=== PATIENT | male | born 1950 | race Two or more races ===

== ENCOUNTER 2021-04-08 10:00 | Outpatient (CLI) | payer MEDICARE, OTHER ==
[2021-04-08] MEDS ORDERED: APIX5TAB PO (12:24)
[2021-04-08] MEDS ORDERED: LISI10TA29 PO (12:24)
[2021-04-08] MEDS ORDERED: METO25TA20 PO (12:24)
[2021-04-08] MEDS ORDERED: OMEG1CAP74 PO (12:24)
[2021-04-08] MEDS ORDERED: CHOL200010 PO (12:24)
[2021-04-08] MEDS ORDERED: ASPI-1420 PO (12:24)
[2021-04-08] MEDS ORDERED: ATOR20TA PO (12:24)
[2021-04-08] MEDS ORDERED: METF-442 PO (12:24)
[2021-04-08] MEDS ORDERED: GLIM1TAB18 PO (12:24)
[2021-04-08] MEDS ORDERED: SITA100T PO (12:24)
[2021-04-10] MEDS ORDERED: BUME1TAB8 PO (14:38)
== END 2021-04-08 23:59 | disposition home or self-care (01) ==
LOC: WOU 10:00
PROVIDERS: ATTEND Podiatrist Foot & Ankle Surgery
DX: I70.235 Atherosclerosis of native arteries of right leg with ulceration of other part of foot (principal); I70.232 Atherosclerosis of native arteries of right leg with ulceration of calf; E11.621 Type 2 diabetes mellitus with foot ulcer; L97.812 Non-pressure chronic ulcer of other part of right lower leg with fat layer exposed; L97.518 Non-pressure chronic ulcer of other part of right foot with other specified severity; E11.51 Type 2 diabetes mellitus with diabetic peripheral angiopathy without gangrene; R00.0 Tachycardia, unspecified; R06.02 Shortness of breath; I11.0 Hypertensive heart disease with heart failure; I50.9 Heart failure, unspecified; Z87.891 Personal history of nicotine dependence
CPT/HCPCS: G0463

== ENCOUNTER 2021-04-08 11:05 | Inpatient (IN) | payer MEDICARE, MEDICAID ==
[~2021-04-08] VITALS: Ht 162.6 cm; Wt 82.6 kg
--- NOTE | 2021-04-08 11:13 | NUR ---
TO ER BED 7, BIB [facility] FOR SOB X 2 DAYS. AAOX3, BREATHING EVEN AND NON LABORED, CHANGED INTO A GOWN, CONNECTED TO MONITOR, SON IN LAW AT BEDSIDE
--- NOTE | 2021-04-08 11:49 | NUR ---
SALINE LOCK ESTABLISHED, BLOOD DRAWN AND PICKED UP BY LAB
[2021-04-08 12:01] LABS: BASOPHILS % (AUTO) 0.4 % (0.0-2.0); EOSINOPHILS % (AUTO) 0.6 % (0.0-6.0); HEMATOCRIT 38 % (39-51); HEMOGLOBIN 12.9 g/dL (13.5-17.5); LYMPHOCYTES # (AUTO) 0.9 K/uL (0.8-4.8); LYMPHOCYTES % (AUTO) 10.1 % (20.0-44.0); MEAN CORPUSCULAR HGB CONC 34 g/dl (31.0-36.0); MEAN CORPUSCULAR VOLUME 94 fL (80-96); MONOCYTES # (AUTO) 0.8 K/uL (0.1-1.30); MONOCYTES % (AUTO) 8.2 % (2.0-12.0); NEUTROPHILS # (AUTO) 7.4 K/uL (1.8-8.9); NEUTROPHILS % (AUTO) 80.7 % (43.0-81.0); PLATELET COUNT (AUTO) 274 K/uL (150-450); RED BLOOD CELL COUNT(AUTO) 4.01 MIL/uL (4.5-6.0); WHITE BLOOD COUNT (AUTO) 9.1 K/uL (4.3-11.0)
--- NOTE | 2021-04-08 12:09 | NUR ---
DR VIVEROS AT BEDSIDE
[2021-04-08 12:14] LABS: CALCIUM, SERUM 9.1 mg/dL (8.5-10.1); CREATININE 1.2 mg/dL (0.6-1.3); POTASSIUM 4.5 mmol/L (3.5-5.1)
[2021-04-08] MEDS ORDERED: SITA100T PO (12:24)
[2021-04-08] MEDS ORDERED: OMEG1CAP74 PO (12:24)
[2021-04-08] MEDS ORDERED: GLIM1TAB18 PO (12:24)
[2021-04-08] MEDS ORDERED: CHOL200010 PO (12:24)
[2021-04-08] MEDS ORDERED: ASPI-1420 PO (12:24)
[2021-04-08] MEDS ORDERED: APIX5TAB PO (12:24)
[2021-04-08] MEDS ORDERED: METF-442 PO (12:24)
[2021-04-08] MEDS ORDERED: ATOR20TA PO (12:24)
[2021-04-08] MEDS ORDERED: LISI10TA29 PO (12:24)
[2021-04-08] MEDS ORDERED: METO25TA20 PO (12:24)
[2021-04-08 12:27] LABS: ALBUMIN 3.5 g/dL (3.4-5.0); BILIRUBIN,DIRECT 0.3 mg/dL (0.0-0.2); BILIRUBIN,TOTAL 1.1 mg/dL (0.2-1.0); TOTAL PROTEIN, SERUM 7.2 g/dL (6.4-8.2)
--- NOTE | 2021-04-08 12:46 | NUR ---
COVID SWAB DONE AND SENT TO THE LAB
[2021-04-08] MEDS ORDERED: PIPERACILLIN /TAZOBACTAM 3.375 G in IV D5W 50 ML IV ONE (13:00)
[2021-04-08] MEDS ORDERED: FUROSEMIDE 20 MG/2 ML VIAL IV ONE (13:00)
[2021-04-08] MEDS ORDERED: ASPIRIN 81 MG TAB.CHEW PO ONE (13:00)
[2021-04-08] MEDS ORDERED: FUROSEMIDE 20 MG/2 ML VIAL ONE (13:09)
[2021-04-08] MEDS ORDERED: ASPIRIN 81 MG TAB.CHEW ONE (13:10)
--- NOTE | 2021-04-08 13:21 | NUR ---
sent authorization for use or discolsure of health information form to [facility]. also verified that medical records has received it.
--- NOTE | 2021-04-08 13:25 | NUR ---
BLOOD CULTURE ORDER PER DR VIVEROS. NOTED AND CARRIED OUT.
--- NOTE | 2021-04-08 13:56 | NUR ---
JAKE SON IN LAW [phone]
--- NOTE | 2021-04-08 14:27 | NUR ---
ROOM 324-1
--- NOTE | 2021-04-08 14:34 | NUR ---
NURSE WILL GET REPORT AT [id number] AFTER LUNCH BREAK
--- NOTE | 2021-04-08 14:50 | NUR ---
REPORT GIVEN TO NURSE CAIN
[2021-04-08] MEDS ORDERED: POTASSIUM CHLORIDE 20 MEQ TAB.PRT.SR PO SCH (17:00)
[2021-04-08] MEDS: FUROSEMIDE 40 MG/4 ML VIAL IV SCH ×2 (18:03→21:22)
[2021-04-08] MEDS ORDERED: POTASSIUM CHLORIDE 20 MEQ TAB.PRT.SR PO ONE ×2 (18:03→23:37)
[2021-04-08] MEDS: METFORMIN 500 MG TABLET PO SCH (18:04)
[2021-04-08] MEDS: METOPROLOL TARTRATE 25 MG TABLET PO SCH (18:04)
[2021-04-08] MEDS: APIXABAN 5 MG TABLET PO SCH (18:05)
--- NOTE | 2021-04-08 19:40 | NUR ---
LYE BATH OPERATOR OPENING NOTES: RECEIVED PATIENT IN BED, AWAKE, A/O X4. NO S/S OF DISTRESS NOTED. NO COMPLAIN OF PAIN. CALL LIGHT WITHIN REACH. BED ALARM ON. BED IN LOWEST AND LOCKED POSITION. HOB ELEVATED. WITH O2 AT 4L/MIN NASAL CANNULA.FAMILY MEMBERS AT THE BEDSIDE.
[2021-04-08 20:07] VITALS: BP 97/61
[2021-04-08] MEDS ORDERED: ONDANSETRON HCL/PF 4 MG/2 ML VIAL IVP PRN (21:00)
[2021-04-08] MEDS ORDERED: Z GUARD REMEDY 2 OZ OINT TP PRN (21:00)
[2021-04-08] MEDS ORDERED: ACETAMINOPHEN 325 MG TABLET PO PRN (21:00)
[2021-04-08] MEDS: ATORVASTATIN 10 MG TABLET PO SCH (21:23)
--- NOTE | 2021-04-08 23:44 | NUR ---
INFORMED DR LUNA RE: PATIENT COMPLAINING OF SOB, O2 SAT 100% ON 4L/MIN NASAL CANNULA.
[2021-04-08 23:45] VITALS: BP 109/76
--- NOTE | 2021-04-08 23:45 | NUR ---
ASSESSED PATIENT'S LUNG, CLEAR ON AUSCULTATION.
[2021-04-09] MEDS: FUROSEMIDE 40 MG/4 ML VIAL IV SCH (01:09)
[2021-04-09 04:02] VITALS: BP 117/71
[2021-04-09 07:02] LABS: ALANINE AMINOTRANSFERASE 28 U/L (12-78); ALBUMIN 3.4 g/dL (3.4-5.0); ALKALINE PHOSPHATASE 89 U/L (46-116); ASPARTATE AMINOTRANSFERASE 20 U/L (15-37); BILIRUBIN,TOTAL 1.2 mg/dL (0.2-1.0); CARBON DIOXIDE 27 mmol/L (21-32); CHLORIDE 103 mmol/L (98-107); CREATININE 1.6 mg/dL (0.6-1.3); GLUCOSE 138 mg/dL (74-106); MAGNESIUM 1.8 mg/dL (1.8-2.4); PHOSPHORUS 4.2 mg/dL (2.5-4.9); POTASSIUM 4.7 mmol/L (3.5-5.1); SODIUM SERUM 139 mmol/L (136-145); TOTAL PROTEIN, SERUM 7.1 g/dL (6.4-8.2); UREA NITROGEN, BLOOD 27 mg/dL (7-18)
[2021-04-09 07:04] LABS: BASOPHILS % (AUTO) 0.4 % (0.0-2.0); EOSINOPHILS % (AUTO) 0.8 % (0.0-6.0); HEMATOCRIT 37 % (39-51); HEMOGLOBIN 12.2 g/dL (13.5-17.5); LYMPHOCYTES # (AUTO) 1.2 K/uL (0.8-4.8); LYMPHOCYTES % (AUTO) 15.1 % (20.0-44.0); MEAN CORPUSCULAR HGB CONC 34 g/dl (31.0-36.0); MEAN CORPUSCULAR VOLUME 95 fL (80-96); MONOCYTES # (AUTO) 0.8 K/uL (0.1-1.30); MONOCYTES % (AUTO) 10.5 % (2.0-12.0); NEUTROPHILS # (AUTO) 5.7 K/uL (1.8-8.9); NEUTROPHILS % (AUTO) 73.2 % (43.0-81.0); PLATELET COUNT (AUTO) 262 K/uL (150-450); RED BLOOD CELL COUNT(AUTO) 3.85 MIL/uL (4.5-6.0); WHITE BLOOD COUNT (AUTO) 7.8 K/uL (4.3-11.0)
[2021-04-09 07:11] LABS: CHOLESTEROL 93 mg/dL (<200); HDL CHOLESTEROL 39 mg/dL (40-60); IRON, SERUM 29 ug/dl (50-175); LDL 38 mg/dL (0-99); THYROID STIMULATING HORMONE 2.026 uIU/mL (0.358-3.74); TOTAL IRON BINDING CAPACITY 201 ug/dl (250-450); TRIGLYCERIDES 132 mg/dL (30-150)
--- NOTE | 2021-04-09 07:41 | NUR ---
WOUND CARE CONSULT: PT PRESENTS WITH SACRAL SCARRING, LEFT ABOVE KNEE AMPUTATION SCAR/STUMP AND DRY WOUNDS TO RT LOWER LEG AND FOOT, PRESENT ON ADMISSION. DR MARTINS NOTIFIED OF DPM CONSULT REQUEST. RECOMMENDATIONS MADE FOR SKIN PROTECTION. DISCUSSED WITH NURSING STAFF. MD IN AGREEMENT WITH PLAN OF CARE.
--- NOTE | 2021-04-09 07:41 | NUR ---
RN OPENING NOTE- PATIENT IN BED, AWAKE, A/O X4. NO S/S OF DISTRESS NOTED. NO COMPLAINT OF PAIN. CALL LIGHT WITHIN REACH. BED ALARM ON. BED IN LOWEST AND LOCKED POSITION. HOB ELEVATED. WITH O2 AT 4L/MIN NASAL CANNULA. PT NEEDS ATTENDED. WILL MONITOR AND ASSIST
[2021-04-09] MEDS: GLIMEPIRIDE 1 MG TABLET PO SCH (08:21)
[2021-04-09] MEDS: METFORMIN 500 MG TABLET PO SCH (08:21)
[2021-04-09] MEDS: ASPIRIN EC 81 MG TABLET.DR PO SCH (08:21)
[2021-04-09] MEDS: CHOLECALCIFEROL 1,000 UNIT TABLET (VIT D3) PO SCH (08:21)
[2021-04-09] MEDS: APIXABAN 5 MG TABLET PO SCH ×2 (08:22→17:38)
[2021-04-09] MEDS: LINAGLIPTIN 5 MG TABLET PO SCH (08:22)
[2021-04-09] MEDS: LISINOPRIL (10MG) 10 MG TABLET PO SCH (08:25)
[2021-04-09] MEDS: METOPROLOL TARTRATE 25 MG TABLET PO SCH ×2 (08:25→17:39)
[2021-04-09 08:50] VITALS: BP 122/72
[2021-04-09] MEDS: FUROSEMIDE 100 MG/10 ML VIAL IV SCH ×3 (09:46→17:39)
[2021-04-09 16:07] VITALS: BP 128/67
--- NOTE | 2021-04-09 17:30 | NUR ---
RN NOTE-PT OPPOSITIONAL TO CARE, INSISTING ON LEAVING, REMOVED HIS TELE MONITOR. FAMILY CALLED AND CAME IN TO SPEAK W HIM.
--- NOTE | 2021-04-09 19:01 | NUR ---
RN CLOSING NOTE- PT STAYING TONIGHT, FAMILY AT BEDSIDE, PT TOOK RX, EATING BETTER MOOD. SIDE RAILS UP, BED LOCKED, NEEDS ATTENDED, CALL LIGHT IN REACH. ASSIST / MONITOR
--- NOTE | 2021-04-09 19:50 | NUR ---
RN OPENING NOTES RECEIVED PT IN BED, AWAKE WITH FAMILY AT BEDSIDE. AOx4, POLISH SPEAKING. ON RA AND TOLERATING WELL. NO SOB NOTED. NO S/SX OF RESPIRATORY DISTRESS NOTED. IV ACCESS IN L AC @20. IV IS INTACT, PATENT, AND FLUSHING WELL. NO PAIN OR NAUSEA AT THIS TIME. SAFETY PRECAUTIONS IN PLACE: BED IN LOWEST, LOCKED POSITION, SIDERAILS UPx2, AND BRAKES ON. TABLE AND CALL LIGHT WITHIN REACH. WILL CONTINUE TO MONITOR. Addendum: 04/09/21 at 1956 by JIM KEN RN PATIENT AND FAMILY MEMBERS HAD QUESTIONS ABOUT PATIENT'S PLAN OF CARE. EDUCATED PATIENT AND FAMILY MEMBERS ON LASIX AND ANY OTHER QUESTIONS OF CARE.
[2021-04-09 20:00] VITALS: BP 120/84
--- NOTE | 2021-04-09 20:44 | NUR ---
EDUCATED PATIENT AND FAMILY MEMBERS ON NEED FOR TELE BOX. PATIENT ACCEPTED TO BE PLACED ON TELE BOX AGAIN. RHYTHM IS NORMAL SINUS RHYTHM WITH RATE OF 88.
[2021-04-09] MEDS: ATORVASTATIN 10 MG TABLET PO SCH (21:06)
[2021-04-10] VITALS: BP 133/62
[2021-04-10 04:00] VITALS: BP 129/57
[2021-04-10 06:33] LABS: BASOPHILS % (AUTO) 0.6 % (0.0-2.0); EOSINOPHILS % (AUTO) 1.7 % (0.0-6.0); HEMATOCRIT 36 % (39-51); HEMOGLOBIN 12.5 g/dL (13.5-17.5); LYMPHOCYTES # (AUTO) 1.3 K/uL (0.8-4.8); LYMPHOCYTES % (AUTO) 18.5 % (20.0-44.0); MEAN CORPUSCULAR HGB CONC 34 g/dl (31.0-36.0); MEAN CORPUSCULAR VOLUME 94 fL (80-96); MONOCYTES # (AUTO) 0.8 K/uL (0.1-1.30); NEUTROPHILS # (AUTO) 4.8 K/uL (1.8-8.9); NEUTROPHILS % (AUTO) 68.2 % (43.0-81.0); PLATELET COUNT (AUTO) 237 K/uL (150-450); RED BLOOD CELL COUNT(AUTO) 3.86 MIL/uL (4.5-6.0)
--- NOTE | 2021-04-10 06:51 | NUR ---
RN CLOSING NOTES PT IN WHEELCHAIR AT BEDSIDE, AWAKE. AOx4, SCOTTISH SPEAKING. ON RA AND TOLERATING WELL. NO SOB NOTED. NO S/SX OF RESPIRATORY DISTRESS NOTED. TELE MONITOR DETECTS SINUS RHYTHM WITH RATE OF 80-90. IV ACCESS IN L AC #20. IV IS INTACT, PATENT, AND FLUSHING WELL. NO PAIN OR NAUSEA THROUGHOUT SHIFT. ALL NEEDS MET. PT KEPT CLEAN AND DRY. EDUCATION PROVIDED. SAFETY PRECAUTIONS IN PLACE: BED IN LOWEST, LOCKED POSITION, SIDERAILS UPx2, AND BRAKES ON. TABLE AND CALL LIGHT WITHIN REACH. WILL ENDORSE TO ONCOMING SHIFT FOR ROYAL.
[2021-04-10 07:14] LABS: CARBON DIOXIDE 26 mmol/L (21-32); CHLORIDE 102 mmol/L (98-107); CREATININE 1.5 mg/dL (0.6-1.3); GLUCOSE 90 mg/dL (74-106); MAGNESIUM 1.7 mg/dL (1.8-2.4); PHOSPHORUS 5.1 mg/dL (2.5-4.9); POTASSIUM 4.1 mmol/L (3.5-5.1); SODIUM SERUM 141 mmol/L (136-145); UREA NITROGEN, BLOOD 27 mg/dL (7-18)
--- NOTE | 2021-04-10 07:40 | NUR ---
OFFSET PLATE MAKER OPENING NOTES RECEIVED PATIENT IN BED, AWAKE, A/O X4, IN WHEELCHAIR. PATIENT ON ROOM AIR; BREATHING EVEN AND UNLABORED, NO SOB NOTED. TELE [id number] WITH A CURRENT READING OF SR 81 BPM. NO COMPLAINS OF PAIN AT THIS TIME. LAC IV ACCESS G #20 PRESENT AND INTACT;SL. SAFETY PRECAUTIONS IN PLACE; BED IN LOW POSITION AND LOCKED, RAILS UP X2, CALL LIGHT WITHIN REACH. WILL CONTINUE TO MONITOR PATIENT.
[2021-04-10 08:00] VITALS: BP 121/73
[2021-04-10] MEDS ORDERED: MAGNESIUM OXIDE 400 MG TABLET PO ONE (09:00)
[2021-04-10] MEDS: METOPROLOL TARTRATE 25 MG TABLET PO SCH (09:00)
[2021-04-10] MEDS: GLIMEPIRIDE 1 MG TABLET PO SCH (09:09)
[2021-04-10] MEDS: CHOLECALCIFEROL 1,000 UNIT TABLET (VIT D3) PO SCH (09:09)
[2021-04-10] MEDS: ASPIRIN EC 81 MG TABLET.DR PO SCH (09:09)
[2021-04-10] MEDS: LINAGLIPTIN 5 MG TABLET PO SCH (09:09)
[2021-04-10 09:10] VITALS: BP 121/73
[2021-04-10] MEDS: LISINOPRIL (10MG) 10 MG TABLET PO SCH (09:10)
[2021-04-10] MEDS: APIXABAN 5 MG TABLET PO SCH (09:11)
[2021-04-10] MEDS ORDERED: FUROSEMIDE 20 MG/2 ML VIAL IV SCH (12:30)
--- NOTE | 2021-04-10 14:30 | NUR ---
MS REHAB DIRECTOR NOTES PATIENT DISCHARGED HOME IN MEDICALLY STABLE CONDITION. PATIENT A/O X4, ABLE TO MAKE NEEDS KNOWN. PATIENT SEEN BY PRIMARY MD AND DISCHARGE INSTRUCTIONS AND F/U APPOINTMENTS PROVIDED; PATIENT AND FAMILY VERBALIZED UNDERSTANDING. DISCHARGE PAPERWORK DONE AND SIGNED BY PATIENT. BELONGINGS ACCOUNTED FOR AND SIGNED WELL. PICTURES TAKEN. IV ACCESS REMOVED PRIOR TOO PATIENT LEAVING THE FLOOR. PATIENT LEFT THE UNIT VIA WHEELCHAIR ACCOMPANIED BY RN AND SON.
[2021-04-10] MEDS ORDERED: BUME1TAB8 PO (14:38)
== END 2021-04-10 14:50 | disposition home or self-care (01) | DRG 280 ==
LOC: ER 11:12 → TELE 14:34 → MED 04-10 11:12
PROVIDERS: ADMIT Nurse Practitioner Acute Care; ATTEND Nurse Practitioner Acute Care
DX: I11.0 Hypertensive heart disease with heart failure (principal); N17.0 Acute kidney failure with tubular necrosis; I21.A1 Myocardial infarction type 2; I50.41 Acute combined systolic (congestive) and diastolic (congestive) heart failure; D68.59 Other primary thrombophilia; I87.311 Chronic venous hypertension (idiopathic) with ulcer of right lower extremity; L97.419 Non-pressure chronic ulcer of right heel and midfoot with unspecified severity; L97.819 Non-pressure chronic ulcer of other part of right lower leg with unspecified severity; E11.40 Type 2 diabetes mellitus with diabetic neuropathy, unspecified; E11.51 Type 2 diabetes mellitus with diabetic peripheral angiopathy without gangrene; I25.10 Atherosclerotic heart disease of native coronary artery without angina pectoris; Z20.822 Contact with and (suspected) exposure to COVID-19; E78.00 Pure hypercholesterolemia, unspecified; E78.5 Hyperlipidemia, unspecified; Z79.84 Long term (current) use of oral hypoglycemic drugs; Z79.82 Long term (current) use of aspirin; Z79.01 Long term (current) use of anticoagulants; Z79.899 Other long term (current) drug therapy; E80.6 Other disorders of bilirubin metabolism; Z89.511 Acquired absence of right leg below knee; Z87.891 Personal history of nicotine dependence
CPT/HCPCS: 36415; 71045-TC; 80048-TC; 80053-TC; 80061-TC; 80076-TC; 83540-TC; 83605-TC; 83735-TC; 83880; 84100-TC; 84443-TC; 84484-TC; 85025-TC; 87040-TC; 87081-TC; 93307-TC; 93926-TC; A6403; C9803; G0378; J1940; J2543; J7060

== ENCOUNTER 2021-05-17 08:54 | Outpatient (CLI) | payer MEDICARE, OTHER ==
[~2021-05-17 08:54] MED LIST: APIX5TAB PO; ASPI-1420 PO; ATOR20TA PO; BUME1TAB8 PO; CHOL200010 PO; GLIM1TAB18 PO; LISI10TA29 PO; METF-442 PO; METO25TA20 PO; OMEG1CAP74 PO; SITA100T PO
[2021-05-17 10:32] LABS: BASOPHILS % (AUTO) 0.4 % (0.0-2.0); EOSINOPHILS % (AUTO) 0.4 % (0.0-6.0); HEMATOCRIT 31 % (39-51); HEMOGLOBIN 10.7 g/dL (13.5-17.5); LYMPHOCYTES # (AUTO) 0.7 K/uL (0.8-4.8); LYMPHOCYTES % (AUTO) 10.6 % (20.0-44.0); MEAN CORPUSCULAR HGB CONC 34 g/dl (31.0-36.0); MEAN CORPUSCULAR VOLUME 92 fL (80-96); MONOCYTES # (AUTO) 0.5 K/uL (0.1-1.30); MONOCYTES % (AUTO) 8.1 % (2.0-12.0); NEUTROPHILS # (AUTO) 5.2 K/uL (1.8-8.9); NEUTROPHILS % (AUTO) 80.5 % (43.0-81.0); PLATELET COUNT (AUTO) 230 K/uL (150-450); WHITE BLOOD COUNT (AUTO) 6.4 K/uL (4.3-11.0)
[2021-05-17 10:53] LABS: PREALBUMIN 18.5 MG/DL (18.0-35.7)
[2021-05-17 10:55] LABS: ALANINE AMINOTRANSFERASE 20 U/L (12-78); ALBUMIN 3.1 g/dL (3.4-5.0); ALKALINE PHOSPHATASE 137 U/L (46-116); ASPARTATE AMINOTRANSFERASE 22 U/L (15-37); BILIRUBIN,TOTAL 1.5 mg/dL (0.2-1.0); CALCIUM, SERUM 8.5 mg/dL (8.5-10.1); CARBON DIOXIDE 25 mmol/L (21-32); CHLORIDE 99 mmol/L (98-107); CREATININE 2.1 mg/dL (0.6-1.3); GLUCOSE 218 mg/dL (74-106); SODIUM SERUM 136 mmol/L (136-145); TOTAL PROTEIN, SERUM 7.3 g/dL (6.4-8.2); UREA NITROGEN, BLOOD 54 mg/dL (7-18)
== END 2021-05-17 23:59 | disposition home or self-care (01) ==
LOC: WOU 08:54
PROVIDERS: ATTEND Podiatrist Foot & Ankle Surgery
DX: I70.235 Atherosclerosis of native arteries of right leg with ulceration of other part of foot (principal); I70.238 Atherosclerosis of native arteries of right leg with ulceration of other part of lower leg; L97.819 Non-pressure chronic ulcer of other part of right lower leg with unspecified severity; L97.518 Non-pressure chronic ulcer of other part of right foot with other specified severity; E11.9 Type 2 diabetes mellitus without complications
CPT/HCPCS: 36415; 80053; 83036; 84134; 85025; G0463